=== PATIENT | female | born 1965 | race Caucasian/White ===

== ENCOUNTER 2021-03-03 11:57 | Emergency (ER) | payer OTHER ==
[~2021-03-03] VITALS: Ht 167.6 cm; Wt 80.3 kg
[2021-03-03] MEDS ORDERED: TESSALON PERLE100 M1 PO (16:28)
[2021-03-03] MEDS ORDERED: MEDROLPACK PO (16:28)
[2021-03-03] MEDS ORDERED: PROMETH-CODEIN 65 ML PO (16:28)
[2021-03-03] MEDS ORDERED: MUCINEX DM ER1 EAC1 PO (16:28)
[2021-03-03] MEDS ORDERED: ZITHROMAX500 MG PO (16:28)
[2021-03-03] MEDS ORDERED: VENTOLIN HFA18 GM IH (16:28)
== END 2021-03-03 16:37 | disposition home or self-care (01) ==
LOC: ER 11:57
DX: J20.9 Acute bronchitis, unspecified (principal); Z03.818 Encounter for observation for suspected exposure to other biological agents ruled out; R05.9 Cough, unspecified; R09.81 Nasal congestion